=== PATIENT | female | born 1950 | race Two or more races ===

== ENCOUNTER 2018-10-19 01:57 | Inpatient (IN) | payer OTHER ==
[~2018-10-19] VITALS: Ht 167.6 cm; Wt 80.3 kg
[2018-10-19 02:00] VITALS: BP 138/74
--- NOTE | 2018-10-19 02:00 | NUR ---
RECEIVED PATIENT A DIRECT ADMIT FROM [facility] FOR DX CHEST PAIN. AO X 3, ABLE TO MAKE NEEDS KNOWN. NO ACUTE DISTRESS NOTED. DENIES ANY PAIN AT THIS TIME. IV SITE PATENT, INTACT; FLUSHED. SKIN INTACT. SAFETY REMINDERS GIVEN. MED RECON COMPLETED. ON LOW BED WITH BILATERAL UPPER SIDE RAILS UP. CALL [place]A WITHIN EASY REACH. WILL CONTINUE TO MONITOR. WAITING FOR ADMISSION ORDERS FROM DR. COREAS.
[2018-10-19 02:03] VITALS: BP 138/74
[2018-10-19] MEDS ORDERED: BENA20TA9 PO (02:29)
[2018-10-19] MEDS ORDERED: LEVO50TA8 PO (02:29)
[2018-10-19] MEDS ORDERED: TRIAMTERENE PO (02:29)
[2018-10-19] MEDS ORDERED: HYDROCODONE/APAP 5/325MG 1 EACH TABLET PO PRN (03:30)
[2018-10-19] MEDS ORDERED: ONDANSETRON HCL/PF 4 MG/2 ML VIAL IVP PRN (03:30)
[2018-10-19] MEDS ORDERED: MAGNESIUM HYDROXIDE 30 ML UDC PO PRN (03:30)
[2018-10-19] MEDS ORDERED: MAG HYDROX/AL HYDROX/SIMETH 30 ML UDC PO PRN (03:30)
[2018-10-19] MEDS ORDERED: Z GUARD REMEDY 2 OZ OINT TP PRN (03:30)
[2018-10-19] MEDS ORDERED: ACETAMINOPHEN 325 MG TABLET PO PRN (03:30)
[2018-10-19] MEDS ORDERED: TRIAMTERENE PO SCH (03:30)
[2018-10-19] MEDS ORDERED: ZOLPIDEM TARTRATE 5 MG TABLET PO PRN (03:30)
[2018-10-19 04:00] VITALS: BP 131/74
--- NOTE | 2018-10-19 06:00 | NUR ---
PATIENT ASLEEP, EASILY AROUSABLE. RESPIRATIONS EVEN. NO SIGNS OF PAIN NOTED. NEEDS ATTENDED. TELE READING SINUS RHYTHM. SAFETY PRECAUTIONS AND COMFORT MEASURES IN PLACE. WILL GIVE REPORT TO DAY SHIFT FOR CONTINUITY OF CARE.
[2018-10-19] MEDS ORDERED: LEVOTHYROXINE SODIUM 50 MCG TABLET PO SCH (07:30)
--- NOTE | 2018-10-19 08:00 | NUR ---
ACOUSTICAL INSTALLER OPENING NOTES Received Patient comfortable and resting in bed. A/O x 4. VS stable with no acute distress. Breathing even and unlabored on room air with no respiratory distress. Denies pain. Tele monitor in place and operational, reading SR with HR-96. 20g PIV on RAC clean, dry, intact, and flushing well. Safety precautions in place. Bed locked and set to lowest position with side rails x 2 up. All needs rendered at this time. Will continue to monitor.
[2018-10-19 08:22] LABS: BASOPHILS % (AUTO) 0.5 % (0.0-2.0); EOSINOPHILS % (AUTO) 2.2 % (0.0-6.0); HEMATOCRIT 40 % (33-45); HEMOGLOBIN 13.6 g/dL (11.5-14.8); LYMPHOCYTES # (AUTO) 2.6 /CMM (0.8-4.8); LYMPHOCYTES % (AUTO) 30.5 % (20.0-44.0); MEAN CORPUSCULAR HGB CONC 34 g/dl (31.0-36.0); MEAN CORPUSCULAR VOLUME 89 fL (82-100); MONOCYTES # (AUTO) 0.5 /CMM (0.1-1.30); MONOCYTES % (AUTO) 6.2 % (2.0-12.0); NEUTROPHILS # (AUTO) 5.2 /CMM (1.8-8.9); NEUTROPHILS % (AUTO) 60.6 % (43.0-81.0); PLATELET COUNT (AUTO) 79 /CMM (150-450); RED BLOOD CELL COUNT(AUTO) 4.48 MIL/uL (4.0-5.2); WHITE BLOOD COUNT (AUTO) 8.7 K/uL (4.3-11.0)
[2018-10-19 08:34] VITALS: BP 128/67
[2018-10-19 08:41] LABS: CALCIUM, SERUM 9.1 mg/dL (8.5-10.1); CREATININE 0.8 mg/dL (0.6-1.3); MAGNESIUM 1.7 mg/dL (1.8-2.4); POTASSIUM 3.8 mmol/L (3.5-5.1)
[2018-10-19] MEDS ORDERED: BENAZEPRIL HCL 20 MG TABLET PO SCH (09:00)
[2018-10-19 09:06] LABS: LYMPHOCYTES % (MANUAL) 29 % (16-48); MONOCYTES % (MANUAL) 6 % (0-11.0); NEUTROPHILS % (MANUAL) 65 (42-76)
[2018-10-19] MEDS ORDERED: ATORVASTATIN 10 MG TABLET PO SCH (09:30)
[2018-10-19] MEDS ORDERED: ASPIRIN 81 MG TAB.CHEW PO SCH (09:30)
[2018-10-19] MEDS: Magnesium 1GM/D5W 100ML PREMIX 100 ML IV SCH ×2 (09:52→11:06)
[2018-10-19 10:27] LABS: THYROID STIMULATING HORMONE 5.125 uIU/mL (0.358-3.74)
--- NOTE | 2018-10-19 12:01 | NUR ---
PLANNING ADVISOR NOTES Patient taken down to Radiology Dept. for Lexiscan at this time.
[2018-10-19] MEDS ORDERED: REGADENOSON 0.4 MG/5 ML DISP.SYRIN IVP ONE (12:30)
--- NOTE | 2018-10-19 13:05 | NUR ---
MS RN NOTES Patient returned from Radiology Dept. s/p [place] at this time. Patient in stable condition. Daughter at bedside. Lunch provided. Will continue to monitor.
[2018-10-19 16:10] VITALS: BP 116/75
[2018-10-19] MEDS ORDERED: ASPI-1169 PO (16:24)
[2018-10-19] MEDS ORDERED: ATOR10TA PO (16:24)
--- NOTE | 2018-10-19 17:25 | NUR ---
MS ROLLER COASTER DESIGNER NOTES Patient discharged for HOME at this time. Patient in stable condition. VS stable with no acute distress. Breathing even and unlabored on room air with no respiratory distress. Denies pain. Medication reconciliation and discharge orders reviewed and explained to Patient and family members. Patient verbalized understanding. Skin intact. All belongings with Patient. Escorted Patient to the lobby for safety. Patient picked up by Daughter, Gertrudis .
== END 2018-10-19 18:40 | disposition home or self-care (01) | DRG 198 ==
LOC: TELE 01:57 → MED 11:00
PROVIDERS: ADMIT Nurse Practitioner Acute Care; ATTEND Nurse Practitioner Acute Care
DX: I25.10 Atherosclerotic heart disease of native coronary artery without angina pectoris (principal); D69.6 Thrombocytopenia, unspecified; I11.0 Hypertensive heart disease with heart failure; I50.32 Chronic diastolic (congestive) heart failure; J44.9 Chronic obstructive pulmonary disease, unspecified; E83.42 Hypomagnesemia; I10 Essential (primary) hypertension; Z79.82 Long term (current) use of aspirin; E03.9 Hypothyroidism, unspecified; E66.9 Obesity, unspecified; Z85.89 Personal history of malignant neoplasm of other organs and systems
CPT/HCPCS: 36415; 80048-TC; 80061-TC; 83735-TC; 84100-TC; 84439-TC; 84443-TC; 84484-TC; 85025-TC; 87081-TC; 93307-TC; A9502; G0378; J2785; J3475; J7050

== ENCOUNTER 2020-03-15 14:28 | Emergency (ER) | payer OTHER ==
[~2020-03-15] VITALS: Ht 152.4 cm; Wt 79.8 kg
[~2020-03-15 14:28] MED LIST: ASPI-1169 PO; ATOR10TA PO; BENA20TA9 PO; LEVO50TA8 PO; TRIAMTERENE PO
--- NOTE | 2020-03-15 14:30 | NUR ---
PT BIB SELF C/O LUE PAIN 09/18.DENIES CHEST PAIN, SOB. VS CHECKED. AWAITING MD PHAN.
[2020-03-15] MEDS ORDERED: KETOROLAC TROMETHAMINE INJ 60 MG/2 ML VIAL IM ONE (15:00)
[2020-03-15] MEDS ORDERED: KETOROLAC TROMETHAMINE INJ 30 MG/ML VIAL ONE (15:05)
--- NOTE | 2020-03-15 15:08 | NUR ---
ROMINAO JULIO FOR XRAY
--- NOTE | 2020-03-15 16:20 | NUR ---
Patient discharged to home in stable condition. Written and verbal after care instructions given. Patient verbalizes understanding of instruction.
[2020-03-15 16:21] VITALS: BP 134/71
== END 2020-03-15 16:22 | disposition home or self-care (01) ==
LOC: ER 14:31
DX: M54.12 Radiculopathy, cervical region (principal); I10 Essential (primary) hypertension; E03.9 Hypothyroidism, unspecified; E78.5 Hyperlipidemia, unspecified; E78.00 Pure hypercholesterolemia, unspecified; J44.9 Chronic obstructive pulmonary disease, unspecified; Z98.890 Other specified postprocedural states; Z79.82 Long term (current) use of aspirin; Z79.899 Other long term (current) drug therapy
CPT/HCPCS: 70450; 96372; 99284; J1885

== ENCOUNTER 2020-10-04 14:17 | Emergency (ER) | payer OTHER ==
[~2020-10-04] VITALS: Ht 152.4 cm; Wt 81.6 kg
[2020-10-04] MEDS ORDERED: FAMOTIDINE/PF INJ 20 MG/2 ML VIAL IV ONE ×2 (14:58→15:00)
[2020-10-04 15:07] LABS: BASOPHILS % (AUTO) 0.5 % (0.0-2.0); EOSINOPHILS % (AUTO) 2.6 % (0.0-6.0); HEMATOCRIT 38 % (33-45); HEMOGLOBIN 12.7 g/dL (11.5-14.8); LYMPHOCYTES # (AUTO) 2.7 /CMM (0.8-4.8); LYMPHOCYTES % (AUTO) 33.2 % (20.0-44.0); MEAN CORPUSCULAR HGB CONC 33 g/dl (31.0-36.0); MEAN CORPUSCULAR VOLUME 90 fL (82-100); MONOCYTES # (AUTO) 0.6 /CMM (0.1-1.30); MONOCYTES % (AUTO) 6.9 % (2.0-12.0); NEUTROPHILS # (AUTO) 4.6 /CMM (1.8-8.9); NEUTROPHILS % (AUTO) 56.8 % (43.0-81.0); PLATELET COUNT (AUTO) 85 /CMM (150-450); RED BLOOD CELL COUNT(AUTO) 4.27 MIL/uL (4.0-5.2); WHITE BLOOD COUNT (AUTO) 8.2 K/uL (4.3-11.0)
--- NOTE | 2020-10-04 15:10 | NUR ---
BIBS WITH FAMILY TO ER BED 12. AAOX4. NOT IN RESP DISTRESS, BREATHING EVEN AND UNLABORED. AMBULATORY. CAME IN FOR EPIGASTRIC PIN STARTED FRIDAY WORST TODAY. PT RATES HER PAIN 5/ WITH A BURNING SENSATION THAT IS GOING UP HER CHEST. PT TOOK GAS-X WITHOUT RELIEF. MADE AWARE. ORDERS RECEIVED, NOTED AND CARRIED OUT. IV LINE ESTABLISHED ON THE R AC 20G, BLOOD DRAWN AND GIVEN TO PHLEB AT BEDSIDE. EKG DONE AT BEDSIDE.
[2020-10-04 15:17] LABS: CARBON DIOXIDE 29 mmol/L (21-32); CHLORIDE 94 mmol/L (98-107); CREATININE 0.8 mg/dL (0.6-1.3); GLUCOSE 104 mg/dL (74-106); POTASSIUM 3.5 mmol/L (3.5-5.1); SODIUM SERUM 129 mmol/L (136-145); UREA NITROGEN, BLOOD 11 mg/dL (7-18)
[2020-10-04 15:23] LABS: ALANINE AMINOTRANSFERASE 56 U/L (12-78); ALBUMIN 4.3 g/dL (3.4-5.0); ALKALINE PHOSPHATASE 157 U/L (46-116); ASPARTATE AMINOTRANSFERASE 26 U/L (15-37); BILIRUBIN,DIRECT 0.1 mg/dL (0.0-0.2); BILIRUBIN,TOTAL 0.6 mg/dL (0.2-1.0); LIPASE 194 U/L (73-393)
[2020-10-04] MEDS ORDERED: LIDOCAINE VISCOUS 2% UD 15 ML UDC MM ONE (15:30)
[2020-10-04] MEDS ORDERED: MAG HYDROX/AL HYDROX/SIMETH 30 ML UDC PO ONE (15:30)
[2020-10-04] MEDS ORDERED: MAG HYDROX/AL HYDROX/SIMETH 30 ML UDC ONE (15:35)
[2020-10-04] MEDS ORDERED: LIDOCAINE VISCOUS 2% UD 15 ML UDC ONE (15:35)
[2020-10-04 16:07] LABS: LYMPHOCYTES % (MANUAL) 32 % (16-48); MONOCYTES % (MANUAL) 9 % (0-11.0); NEUTROPHILS % (MANUAL) 57 (42-76)
[2020-10-04 16:08] LABS: EOSINOPHILS % (MANUAL) 2 % (0-4)
--- NOTE | 2020-10-04 16:15 | NUR ---
Patient discharged to home in stable condition. Written and verbal after care instructions given. Patient verbalizes understanding of instruction.IV removed. Catheter intact and site benign. Pressure and 4x4 applied to site. No bleeding noted. Pt ambulatory with a steady gait
[2020-10-04 16:31] VITALS: BP 118/65
== END 2020-10-04 16:16 | disposition home or self-care (01) ==
LOC: ER 14:17
DX: R10.13 Epigastric pain (principal); E87.1 Hypo-osmolality and hyponatremia; D69.6 Thrombocytopenia, unspecified; I10 Essential (primary) hypertension; E11.9 Type 2 diabetes mellitus without complications; Z98.890 Other specified postprocedural states; Z79.899 Other long term (current) drug therapy
CPT/HCPCS: 36415; 80048; 80076; 83690; 84484; 85007; 85025; 93005; 96374; 99284; J3490

== ENCOUNTER 2021-06-20 10:06 | Emergency (ER) | payer MEDICARE, OTHER ==
[~2021-06-20] VITALS: Ht 162.6 cm; Wt 81.6 kg
[2021-06-20 10:21] VITALS: BP 162/75
--- NOTE | 2021-06-20 10:21 | NUR ---
MAURA CLAVICULAR AREA PAIN SINCE FRIDAY WHILE "STRETCHING" CLOTHES
[2021-06-20] MEDS ORDERED: IBUPROFEN 600 MG TABLET ONE (11:27)
[2021-06-20] MEDS ORDERED: IBUPROFEN 600 MG TABLET PO ONE (11:30)
--- NOTE | 2021-06-20 12:50 | NUR ---
Patient discharged to home in stable condition. Written and verbal after care instructions given. Patient verbalizes understanding of instruction.
== END 2021-06-20 12:51 | disposition home or self-care (01) ==
LOC: ER 10:16
DX: M25.512 Pain in left shoulder (principal); I10 Essential (primary) hypertension; E11.9 Type 2 diabetes mellitus without complications; D69.59 Other secondary thrombocytopenia; Z86.718 Personal history of other venous thrombosis and embolism; Z85.831 Personal history of malignant neoplasm of soft tissue; Z79.82 Long term (current) use of aspirin; Z79.02 Long term (current) use of antithrombotics/antiplatelets; Z79.811 Long term (current) use of aromatase inhibitors
CPT/HCPCS: 73030-TC

== ENCOUNTER 2021-10-26 08:24 | Emergency (ER) | payer MEDICARE, OTHER ==
[~2021-10-26] VITALS: Ht 162.6 cm; Wt 81.6 kg
--- NOTE | 2021-10-26 08:29 | NUR ---
BIBS C/O DYSURIA, BURNING SENSATION WHEN URINATING x 4DAYS. TO ER BED 1, HOOKED TO MONITOR, CHANGED TO HOSP GOWN, WARM BLANKET PROVIDED, AWAITING MD PHAN
--- NOTE | 2021-10-26 08:50 | NUR ---
SEEN BY DR HAWKINS.
[2021-10-26 08:58] LABS: BASOPHILS % (AUTO) 0.2 % (0.0-2.0); EOSINOPHILS % (AUTO) 1.1 % (0.0-6.0); HEMATOCRIT 38 % (33-45); HEMOGLOBIN 12.9 g/dL (11.5-14.8); LYMPHOCYTES # (AUTO) 2.4 K/uL (0.8-4.8); LYMPHOCYTES % (AUTO) 21.1 % (20.0-44.0); MEAN CORPUSCULAR HGB CONC 34 g/dl (31.0-36.0); MEAN CORPUSCULAR VOLUME 87 fL (82-100); MONOCYTES # (AUTO) 0.6 K/uL (0.1-1.30); MONOCYTES % (AUTO) 5.1 % (2.0-12.0); NEUTROPHILS # (AUTO) 8.3 K/uL (1.8-8.9); NEUTROPHILS % (AUTO) 72.5 % (43.0-81.0); PLATELET COUNT (AUTO) 80 K/uL (150-450); WHITE BLOOD COUNT (AUTO) 11.4 K/uL (4.3-11.0)
[2021-10-26] MEDS ORDERED: SULF1TAB48 PO (09:09)
[2021-10-26] MEDS ORDERED: PHEN-894 PO (09:09)
[2021-10-26 09:11] LABS: BILIRUBIN,URINE NEGATIVE (NEGATIVE); COLOR,URINE YELLOW (YELLOW); LEUKOCYTE ESTERASE ,URINE MODERATE (NEGATIVE); NITRITE, URINE NEGATIVE (NEGATIVE); PH,URINE 6.5 (5.0-8.0); PROTEIN,URINE NEGATIVE (NEGATIVE); UGLUCOSE NEGATIVE (NEGATIVE); UROBILINOGEN,URINE 0.2 EU/dL (0.2)
[2021-10-26 09:16] LABS: CREATININE 0.8 mg/dL (0.6-1.3); POTASSIUM 3.3 mmol/L (3.5-5.1)
[2021-10-26 09:29] LABS: BACTERIA,URINE Few /HPF (None Seen); SQUAMOUS EPITHELIAL CELL,UR Few /HPF (None Seen)
[2021-10-26 09:46] VITALS: BP 124/68
== END 2021-10-26 09:47 | disposition home or self-care (01) ==
LOC: ER 08:30
DX: N39.0 Urinary tract infection, site not specified (principal); I10 Essential (primary) hypertension; E11.9 Type 2 diabetes mellitus without complications; E03.9 Hypothyroidism, unspecified; Z79.899 Other long term (current) drug therapy
CPT/HCPCS: 36415; 80048-TC; 81001; 85025-TC; 87086-TC; 87186-TC

== ENCOUNTER 2021-12-02 04:43 | Inpatient (IN) | payer MEDICARE, OTHER ==
[~2021-12-02] VITALS: Ht 152.4 cm; Wt 81.2 kg
[~2021-12-02 04:43] MED LIST changes: +PHEN-894 PO; +SULF1TAB48 PO
--- NOTE | 2021-12-02 04:50 | NUR ---
IV CANNULA G20 INSERTED ON LEFT FA.
--- NOTE | 2021-12-02 04:52 | NUR ---
EKG DONE. REVIEWED BY DR HAWKINS
--- NOTE | 2021-12-02 04:52 | NUR ---
PATIENT CAME WITH NIECE FROM HOME. CC OF WEAKNESS AND ALTERED LEVEL OF CONSCIOUSNESS. PER NIECE PATIENT HAS CHEST PAIN HOME AND WAS GIVEN NITRO 2 TABS. PATIENT IS AAOX1. CONSCIOUS, WITHDRAWS TO PAINFUL STIMULI. PLACED COMFORTABLY IN BED. VITALS CHECKED. PATIENT IS KNOWN DIABETIC WITH HEART CONDITION. ACCUCHECK DONE WITH GLUCOSE OF 95. LAST KNOWN WELL 0200H
--- NOTE | 2021-12-02 04:54 | NUR ---
CODE STROKE ACTIVATED
--- NOTE | 2021-12-02 04:57 | NUR ---
NEUROTELE MACHINE BROUGHT BY BUILDING CONSTRUCTION CONTRACTOR AT BEDSIDE.
--- NOTE | 2021-12-02 04:58 | NUR ---
DEBONE SUPERVISOR AT BEDSIDE. TO WHEEL PATIENT TO CT SCAN DEPT
--- NOTE | 2021-12-02 05:00 | NUR ---
PT HAVING DIFFICULTY SWALLOWING MORE THAN 5CC WATER. NIHSS SCORE OF 1. DR HAWKINS MADE AWARE.
[2021-12-02] MEDS ORDERED: IV NS 0.9% 250 ML IV ONE (05:04)
[2021-12-02] MEDS ORDERED: IOHEXOL-350 100 ML VIAL IV ONE ×2 (05:04→05:14)
[2021-12-02] MEDS ORDERED: CT SWABBABLE VALVE TRANS SET 1 EA INFUS.SET MC ONE (05:04)
--- NOTE | 2021-12-02 05:20 | NUR ---
TELENEURO WITH DR QURESHI STARTED.
--- NOTE | 2021-12-02 05:25 | NUR ---
COVID SWAB DONE AND SENT TO LAB
--- NOTE | 2021-12-02 05:25 | NUR ---
IV CANNULA G20 INSERTED ON RIGHT AC. BLOOD DRAWN AND SENT TO LAB
--- NOTE | 2021-12-02 06:02 | NUR ---
PT BROUGHT TO CT DEPT
[2021-12-02 06:03] LABS: BASOPHILS % (AUTO) 0.6 % (0.0-2.0); EOSINOPHILS % (AUTO) 1.9 % (0.0-6.0); HEMATOCRIT 38 % (33-45); HEMOGLOBIN 12.6 g/dL (11.5-14.8); LYMPHOCYTES # (AUTO) 3.1 K/uL (0.8-4.8); LYMPHOCYTES % (AUTO) 35.6 % (20.0-44.0); MEAN CORPUSCULAR HGB CONC 33 g/dl (31.0-36.0); MEAN CORPUSCULAR VOLUME 89 fL (82-100); MONOCYTES # (AUTO) 0.5 K/uL (0.1-1.30); MONOCYTES % (AUTO) 6.2 % (2.0-12.0); NEUTROPHILS # (AUTO) 4.9 K/uL (1.8-8.9); NEUTROPHILS % (AUTO) 55.7 % (43.0-81.0); PLATELET COUNT (AUTO) 81 K/uL (150-450); RED BLOOD CELL COUNT(AUTO) 4.27 MIL/uL (4.0-5.2); WHITE BLOOD COUNT (AUTO) 8.8 K/uL (4.3-11.0)
[2021-12-02 06:35] LABS: ALANINE AMINOTRANSFERASE 26 U/L (12-78); ALBUMIN 4.4 g/dL (3.4-5.0); ALKALINE PHOSPHATASE 125 U/L (46-116); ASPARTATE AMINOTRANSFERASE 21 U/L (15-37); BILIRUBIN,DIRECT 0.1 mg/dL (0.0-0.2); BILIRUBIN,TOTAL 0.4 mg/dL (0.2-1.0); CALCIUM, SERUM 9.1 mg/dL (8.5-10.1); CARBON DIOXIDE 31 mmol/L (21-32); CHLORIDE 97 mmol/L (98-107); GLUCOSE 118 mg/dL (74-106); POTASSIUM 4.3 mmol/L (3.5-5.1); SODIUM SERUM 134 mmol/L (136-145); TOTAL PROTEIN, SERUM 8.1 g/dL (6.4-8.2); UREA NITROGEN, BLOOD 16 mg/dL (7-18)
[2021-12-02 07:29] LABS: EOSINOPHILS % (MANUAL) 2 % (0-4); LYMPHOCYTES % (MANUAL) 37 % (16-48); MONOCYTES % (MANUAL) 7 % (0-11.0); NEUTROPHILS % (MANUAL) 54 (42-76)
[2021-12-02] MEDS ORDERED: ENOXAPARIN SODIUM 40 MG/0.4 ML DISP.SYRIN SQ SCH ×2 (07:30→09:36)
[2021-12-02] MEDS ORDERED: BLOOD SUGAR DIAGNOSTIC 1 EACH STRIP IN SCH (07:30)
[2021-12-02] MEDS ORDERED: PANTOPRAZOLE 40 MG TABLET.DR PO SCH (07:30)
[2021-12-02] MEDS ORDERED: ACETAMINOPHEN 325 MG TABLET PO PRN ×2 (07:30→10:00)
[2021-12-02] MEDS ORDERED: MAG HYDROX/AL HYDROX/SIMETH 30 ML UDC PO PRN (07:30)
[2021-12-02] MEDS ORDERED: ENOXAPARIN SODIUM 40 MG/0.4 ML DISP.SYRIN SQ ONE (07:40)
[2021-12-02] MEDS ORDERED: PANTOPRAZOLE 40 MG TABLET.DR PO ONE (07:41)
--- NOTE | 2021-12-02 08:50 | NUR ---
BED 312-2 Addendum: 12/02/21 at 0851 by REMA BED 310-1
[2021-12-02] MEDS ORDERED: ASPIRIN EC 325 MG TABLET.DR PO SCH (09:00)
--- NOTE | 2021-12-02 09:20 | NUR ---
REPORT GIVEN TO SHAHNAZ PHAM FOR LIVE
[2021-12-02] MEDS ORDERED: ATOR10TA PO (09:25)
[2021-12-02] MEDS ORDERED: OMEP10CA5 PO (09:25)
[2021-12-02] MEDS ORDERED: NITR0.4T48 PO (09:25)
[2021-12-02] MEDS ORDERED: METO50TA16 PO (09:25)
[2021-12-02] MEDS ORDERED: TRIA1TAB3 PO (09:25)
[2021-12-02] MEDS ORDERED: ACET-868 PO (09:25)
--- NOTE | 2021-12-02 09:37 | NUR ---
TRANSFERRED TO BED 310 IN STABLE CONDITION
--- NOTE | 2021-12-02 09:40 | NUR ---
RN NOTES RECEIVED PATIENT FROM ER AT 0937 AM. PATIENT IS ALERT AND ORIENTED TIMES 4. NO PAIN NOTED. NO SOB NOTED NO DISTRESS NOTED. ALL NEEDS ATTENDED. SON AT THE BED SIDE. SON TRANSLATED FOR HER MOM. NO PARALYSIS NOTED. WEAKNESS NOTED. PATIENT ABLE TO WALK WITH ASSISTANCE. NO DISTRESS NOTED. ALL THE BELONGINGS ACCOUNTED AND SIGNED FOR. IV SITE ON THE LFA BRITNEY 20 INTACT. ON TELE MONITOR READING SR. ALL SAFETY MEASURES IN PLACE. BED LOCKED IN THE LOWEST POSITION. CALL LIGHT AND TABLE IN EASY REACH. NEURO CHECKS DONE. NO DRIFT NOTED. WILL CONTINUE TO MONITOR CLOSELY.
[2021-12-02] MEDS ORDERED: CHOL100043 PO (09:45)
[2021-12-02] MEDS ORDERED: NITROGLYCERIN 0.4 MG/TAB BOTTLE SL PRN (10:00)
--- NOTE | 2021-12-02 10:00 | NUR ---
RN NOTES PATIENT REFUSED 0900 AM ASPIRIN. EDUCATE ABOUT THE BENEFITS STILL REFUSING. PATIENT STATED HER BLOOD COUNT IS LOW AND HER SPECIALIST SAID DO NOT TAKE THE MEDICATION.
[2021-12-02] MEDS: ATORVASTATIN 10 MG TABLET PO SCH (10:41)
[2021-12-02] MEDS: BENAZEPRIL HCL 20 MG TABLET PO SCH ×2 (10:41→16:34)
[2021-12-02] MEDS: LEVOTHYROXINE SODIUM 50 MCG TABLET PO SCH (10:41)
[2021-12-02] MEDS: METOPROLOL TARTRATE 50 MG TABLET PO SCH ×2 (10:42→16:34)
[2021-12-02] MEDS: BLOOD SUGAR DIAGNOSTIC 1 EACH STRIP IN SCH ×2 (12:06→17:31)
--- NOTE | 2021-12-02 18:47 | NUR ---
MOTOR EQUIPMENT COMMANDING OFFICER CLOSING NOTES PATIENT AWAKE IN BED. PATIENT IS ALERT AND ORIENTED TIMES 4. NO PAIN NOTED. NO SOB NOTED NO DISTRESS NOTED. ALL NEEDS ATTENDED. SON AT THE BED SIDE. SON TRANSLATED FOR HER MOM. NO PARALYSIS NOTED. GENERALIZED WEAKNESS NOTED. PATIENT ABLE TO WALK WITH ASSISTANCE. NO DISTRESS NOTED. IV SITE ON THE LFA BRITNEY 20 INTACT. ON TELE MONITOR READING SR. ALL DUE MEDS GIVEN ORDERED. NEURO CHECKS DONE.NO DRIFT NOTED. PATIENT ABLE TO AMBULATE WITH ASSISTANCE. GENERAL WEAKNESS NOTED.ALL SAFETY MEASURES IN PLACE. BED LOCKED IN THE LOWEST POSITION. CALL LIGHT AND TABLE IN EASY REACH. WILL ENDORSE FOR LIVE.
--- NOTE | 2021-12-02 19:40 | NUR ---
MS RN OPENING NOTES RECEIVED PATIENT AWAKE RESTING IN BED. A/O X 3. NO SOB NOTED, NO DISTRESS NOTED. ALL NEEDS ATTENDED. FAMILY AT BEDSIDE. GENERALIZED WEAKNESS NOTED. PATIENT ABLE TO WALK WITH ASSISTANCE. IV SITE ON THE LFA BRITNEY 20 INTACT. ALL SAFETY MEASURES IN PLACE. BED LOCKED IN THE LOWEST POSITION. CALL LIGHT AND TABLE IN EASY REACH. WILL CONTINUE TO MONITOR THROUGHOUT THE SHIFT. Addendum: 12/03/21 at 0039 by PABLO MARSH RN JEWELRY INSPECTOR OPENING NOTES RECEIVED PATIENT AWAKE RESTING IN BED. A/O X 3. NO SOB NOTED, NO DISTRESS NOTED. ALL NEEDS ATTENDED. FAMILY AT BEDSIDE. GENERALIZED WEAKNESS NOTED. PATIENT ABLE TO WALK WITH ASSISTANCE. IV SITE ON THE LFA BRITNEY 20 INTACT. ALL SAFETY MEASURES IN PLACE. BED LOCKED IN THE LOWEST POSITION. CALL LIGHT AND TABLE IN EASY REACH. WILL CONTINUE TO MONITOR THROUGHOUT THE SHIFT.
[2021-12-02 20:43] VITALS: BP 135/73
[2021-12-02] MEDS ORDERED: SIMVASTATIN 10 MG TABLET PO SCH (22:00)
[2021-12-02 23:37] VITALS: BP 120/67
[2021-12-03 00:33] VITALS: BP 120/67
[2021-12-03] MEDS: BLOOD SUGAR DIAGNOSTIC 1 EACH STRIP IN SCH ×3 (00:35→12:00)
--- NOTE | 2021-12-03 00:35 | NUR ---
RN NOTE BS CHECKED AT 104 MG/DL. NO COVERAGE GIVEN, ALL DUE MEDS GIVEN. WILL CONT TO MONITOR.
[2021-12-03 04:39] VITALS: BP 132/74
[2021-12-03 04:45] VITALS: BP 132/74
--- NOTE | 2021-12-03 05:54 | NUR ---
RN NOTE BS CHECKED AT 101 MG/DL. NO COVERAGE GIVEN.
[2021-12-03 06:41] LABS: BASOPHILS % (AUTO) 0.4 % (0.0-2.0); EOSINOPHILS % (AUTO) 2.7 % (0.0-6.0); HEMATOCRIT 37 % (33-45); HEMOGLOBIN 12.6 g/dL (11.5-14.8); LYMPHOCYTES # (AUTO) 2.4 K/uL (0.8-4.8); LYMPHOCYTES % (AUTO) 32.7 % (20.0-44.0); MEAN CORPUSCULAR HGB CONC 34 g/dl (31.0-36.0); MEAN CORPUSCULAR VOLUME 88 fL (82-100); MONOCYTES # (AUTO) 0.5 K/uL (0.1-1.30); NEUTROPHILS # (AUTO) 4.1 K/uL (1.8-8.9); NEUTROPHILS % (AUTO) 57.2 % (43.0-81.0); PLATELET COUNT (AUTO) 73 K/uL (150-450); RED BLOOD CELL COUNT(AUTO) 4.26 MIL/uL (4.0-5.2); WHITE BLOOD COUNT (AUTO) 7.2 K/uL (4.3-11.0)
--- NOTE | 2021-12-03 06:51 | NUR ---
CELL ROOM OPERATOR CLOSING NOTES PATIENT AWAKE IN BED. A/O X 4. ON RA, TOLERATING WELL SATING 96%. NO SOB AND ANY S/SX OF RESPIRATORY DISTRESS NOTED AT THIS TIME. ALL NEEDS ATTENDED. NO PARALYSIS NOTED HOWEVER NOTED WITH GENERALIZED WEAKNESS, PATIENT ABLE TO AMBULATE WITH ASSISTANCE. IV ACCESS ON THE LFA BRITNEY 20 AND RAC #2OG SL INTACT AND PATENT. ON TELE MONITOR READING SR AT 60. ALL DUE MEDS GIVEN ORDERED. NEURO CHECKS DONE. NO DRIFT NOTED. ALL SAFETY MEASURES IN PLACE. BED LOCKED IN THE LOWEST POSITION. CALL LIGHT AND TABLE IN EASY REACH. WILL ENDORSE TO AM SHIFT NURSE.
[2021-12-03 07:14] LABS: THYROID STIMULATING HORMONE 3.391 uIU/mL (0.358-3.74)
[2021-12-03] MEDS ORDERED: PANTOPRAZOLE 40 MG TABLET.DR PO SCH (07:30)
--- NOTE | 2021-12-03 07:43 | NUR ---
RN OPENING NOTE PATIENT AWAKE IN BED RESTING. A/O X4. NO S/S OF PAIN NOTED AT THIS TIME. ON ROOM AIR, NO DISTRESS OR SHORTNESS OF BREATH NOTED. IV ACCESS LFA #20G, RAC #22G INTACT, PATENT AND FLUSHING WELL. PATIENT ON EXTERNAL PANEL FLOW MACHINE OPERATOR WITH CURRENT READING OF SR AND HR OF 61, NO CARDIAC DISTRESS NOTED. FALL AND SAFETY MEASURES IN PLACE, BED ALARM ON, BED IN LOW AND LOCK POSITION, CALL LIGHT AND TABLE WITHIN EASY REACH, SIDE RAILS UP X2. WILL CONTINUE TO MONITOR.
[2021-12-03] MEDS ORDERED: CT SWABBABLE VALVE TRANS SET 1 EA INFUS.SET MC ONE (08:01)
[2021-12-03] MEDS ORDERED: METOPROLOL TARTRATE INJ 5 MG/5 ML AMPUL ONE ×2 (08:01→08:22)
[2021-12-03] MEDS ORDERED: NITROGLYCERIN 0.4 MG/TAB BOTTLE ONE (08:01)
[2021-12-03] MEDS ORDERED: IOHEXOL-350 100 ML VIAL IV ONE (08:01)
[2021-12-03] MEDS ORDERED: IV NS 0.9% 250 ML IV ONE (08:02)
[2021-12-03] MEDS: METOPROLOL TARTRATE INJ 5 MG/5 ML AMPUL IVP PRN ×3 (08:09→08:19)
[2021-12-03 08:27] LABS: ALBUMIN 3.9 g/dL (3.4-5.0); BILIRUBIN,TOTAL 0.7 mg/dL (0.2-1.0); CALCIUM, SERUM 8.9 mg/dL (8.5-10.1); CREATININE 0.8 mg/dL (0.6-1.3); MAGNESIUM 2.2 mg/dL (1.8-2.4); POTASSIUM 3.7 mmol/L (3.5-5.1); TOTAL PROTEIN, SERUM 7.4 g/dL (6.4-8.2)
[2021-12-03] MEDS ORDERED: NITROGLYCERIN 0.4 MG/TAB BOTTLE SL PRN (08:30)
[2021-12-03] MEDS ORDERED: ENOXAPARIN SODIUM 40 MG/0.4 ML DISP.SYRIN SQ SCH (09:00)
[2021-12-03] MEDS: LEVOTHYROXINE SODIUM 50 MCG TABLET PO SCH (09:24)
[2021-12-03] MEDS: METOPROLOL TARTRATE 50 MG TABLET PO SCH (09:24)
[2021-12-03] MEDS: ATORVASTATIN 10 MG TABLET PO SCH (09:24)
[2021-12-03 09:25] VITALS: BP 135/55
[2021-12-03] MEDS: BENAZEPRIL HCL 20 MG TABLET PO SCH (09:25)
[2021-12-03] MEDS ORDERED: ASPIRIN EC 81 MG TABLET.DR PO SCH (10:00)
[2021-12-03] MEDS ORDERED: SIMV-49 PO (10:17)
[2021-12-03] MEDS ORDERED: Aspirin Ec PO (10:17)
--- NOTE | 2021-12-03 11:55 | NUR ---
RN NOTE PATIENT REFUSED ACCU-CHECK BEFORE DISCHARGE, PREVIOUS GLUCOSE LEVEL WAS 101.
--- NOTE | 2021-12-03 12:00 | NUR ---
CERAMICS TEST ENGINEER NOTE PATIENT DISCHARGE IN STABLE MEDICAL CONDITION, A/O X4. V/S TAKEN, STABLE AND RECORDED. NO IV ACCESS. SKIN ASSESSMENT DONE, SKIN INTACT. NAME ARM BAND REMOVED. ALL BELONGINGS CHECKED AND SIGNED. HEALTH TEACHING AND DISCHARGE INSTRUCTIONS GIVEN AND VERBALIZED UNDERSTANDING. PATIENT LEFT UNIT VIA WHEELCHAIR WITH NO SIGNS OF DISTRESS, ACCOMPANIED BY TERRITORY MANAGER TO THE LOBBY. PATIENT WENT HOME WITH DAUGHTER. CHARGE NURSE AWARE OF DISCHARGED.
--- NOTE | 2021-12-03 15:06 | NUR ---
SS Consult requested stroke. Per RN note, pt. has departed.
== END 2021-12-03 12:00 | disposition home or self-care (01) | DRG 69 ==
LOC: ER 04:51 → TELE 08:54 → MED 12-03 09:20
PROVIDERS: ADMIT Registered Nurse; ATTEND Registered Nurse
DX: G45.9 Transient cerebral ischemic attack, unspecified (principal); R47.01 Aphasia; D69.6 Thrombocytopenia, unspecified; I50.9 Heart failure, unspecified; I11.0 Hypertensive heart disease with heart failure; E11.9 Type 2 diabetes mellitus without complications; E78.5 Hyperlipidemia, unspecified; Z20.822 Contact with and (suspected) exposure to COVID-19; K21.9 Gastro-esophageal reflux disease without esophagitis; Z98.890 Other specified postprocedural states; Z86.718 Personal history of other venous thrombosis and embolism; E83.42 Hypomagnesemia; Z79.82 Long term (current) use of aspirin; Z79.899 Other long term (current) drug therapy; E03.9 Hypothyroidism, unspecified; E66.01 Morbid (severe) obesity due to excess calories; Z68.35 Body mass index [BMI] 35.0-35.9, adult; Z86.73 Personal history of transient ischemic attack (TIA), and cerebral infarction without residual deficits; F41.9 Anxiety disorder, unspecified; Z86.79 Personal history of other diseases of the circulatory system
CPT/HCPCS: 36415; 70450-TC; 70496-TC; 70498-TC; 70551-TC; 71045-TC; 75574; 80048-TC; 80053-TC; 80076-TC; 82962-TC; 83605-TC; 83735-TC; 84100-TC; 84443-TC; 84484-TC; 85025-TC; 85730-TC; 87081-TC; 92526; 92611-TC; 93307-TC; 93880-TC; 97110-TC; 97112-TC; 97116-TC; 97530-TC; C9803; G0378; J1650; J3490; J7050; Q9967

== ENCOUNTER 2022-01-09 12:46 | Emergency (ER) | payer MEDICARE, OTHER ==
[~2022-01-09] VITALS: Ht 157.5 cm; Wt 68.5 kg
[~2022-01-09 12:46] MED LIST changes: +ACET-868 PO; -ASPI-1169 PO; -ATOR10TA PO; +Aspirin Ec PO; +CHOL100043 PO; +METO50TA16 PO; +NITR0.4T48 PO; +OMEP10CA5 PO; -PHEN-894 PO; +SIMV-49 PO; -SULF1TAB48 PO; +TRIA1TAB3 PO; -TRIAMTERENE PO
--- NOTE | 2022-01-09 12:50 | NUR ---
BIBS FOR COUGH X1 WEEK. THE PATIENT WAS PRESCRIBED AZITHROMYCIN (LAST DOSE TAKEN ON FRIDAY), ALBUTEROL AND GUAFENASIN BY PMD. AMBULATORY, PLACED ON BED, AAOX4, BREATHING EVEN AND UNLABORED SATURATING AT 98%RA
--- NOTE | 2022-01-09 13:20 | NUR ---
COVID ANTIGEN SWAB DONE AND SENT TO THE LAB
--- NOTE | 2022-01-09 13:20 | NUR ---
IV LINE IS ESTABLISHED, BLOOD SPECIMEN COLLECTED AND SENT TO THE LAB, THE LINE IS SALINE LOCKED.
--- NOTE | 2022-01-09 13:22 | NUR ---
RAPID INFLUENZA SWAB DONE AND SENT TO THE LAB
[2022-01-09 13:28] LABS: BASOPHILS % (AUTO) 0.4 % (0.0-2.0); HEMATOCRIT 37 % (33-45); HEMOGLOBIN 12.2 g/dL (11.5-14.8); LYMPHOCYTES # (AUTO) 2.3 K/uL (0.8-4.8); LYMPHOCYTES % (AUTO) 30.8 % (20.0-44.0); MEAN CORPUSCULAR HGB CONC 33 g/dl (31.0-36.0); MEAN CORPUSCULAR VOLUME 88 fL (82-100); MONOCYTES # (AUTO) 0.5 K/uL (0.1-1.30); MONOCYTES % (AUTO) 7.1 % (2.0-12.0); NEUTROPHILS # (AUTO) 4.4 K/uL (1.8-8.9); NEUTROPHILS % (AUTO) 58.7 % (43.0-81.0); PLATELET COUNT (AUTO) 88 K/uL (150-450); WHITE BLOOD COUNT (AUTO) 7.4 K/uL (4.3-11.0)
[2022-01-09 13:35] LABS: CALCIUM, SERUM 8.9 mg/dL (8.5-10.1); CARBON DIOXIDE 30 mmol/L (21-32); CHLORIDE 102 mmol/L (98-107); CREATININE 0.9 mg/dL (0.6-1.3); GLUCOSE 132 mg/dL (74-106); POTASSIUM 3.6 mmol/L (3.5-5.1); SODIUM SERUM 138 mmol/L (136-145); UREA NITROGEN, BLOOD 10 mg/dL (7-18)
[2022-01-09 13:48] LABS: ALANINE AMINOTRANSFERASE 39 U/L (12-78); ALKALINE PHOSPHATASE 135 U/L (46-116); ASPARTATE AMINOTRANSFERASE 23 U/L (15-37); BILIRUBIN,DIRECT 0.1 mg/dL (0.0-0.2); BILIRUBIN,TOTAL 0.5 mg/dL (0.2-1.0); TOTAL PROTEIN, SERUM 7.5 g/dL (6.4-8.2)
[2022-01-09] MEDS ORDERED: ALBUTEROL FS 2.5 MG/3 ML VIAL.NEB CONTNEB ONE (14:00)
[2022-01-09] MEDS ORDERED: IPRATROPIUM NEB FS 0.5 MG/2.5 ML AMPUL.NEB NEB ONE (14:00)
[2022-01-09] MEDS ORDERED: methylPREDNISolone SOD SUCC 125 MG/2ML VIAL IV ONE (14:00)
--- NOTE | 2022-01-09 14:15 | NUR ---
RT CALLED FOR BREATHING TX
[2022-01-09 14:17] LABS: BASOPHILS % (MANUAL) 0 % (0.0-2.0); EOSINOPHILS % (MANUAL) 2 % (0-4); LYMPHOCYTES % (MANUAL) 22 % (16-48); MONOCYTES % (MANUAL) 15 % (0-11.0); NEUTROPHILS % (MANUAL) 61 (42-76)
[2022-01-09] MEDS ORDERED: PRED20TA PO (15:02)
--- NOTE | 2022-01-09 15:25 | NUR ---
IV removed. Catheter intact and site benign. Pressure and 4x4 applied to site. No bleeding noted.Patient discharged to home in stable condition. Written and verbal after care instructions given. Patient verbalizes understanding of instruction.
[2022-01-09 15:26] VITALS: BP 120/60
== END 2022-01-09 15:25 | disposition home or self-care (01) ==
LOC: ER 12:49
DX: J20.9 Acute bronchitis, unspecified (principal); Z20.822 Contact with and (suspected) exposure to COVID-19; E78.5 Hyperlipidemia, unspecified; E11.9 Type 2 diabetes mellitus without complications; K21.9 Gastro-esophageal reflux disease without esophagitis; Z86.718 Personal history of other venous thrombosis and embolism; D69.6 Thrombocytopenia, unspecified; E07.9 Disorder of thyroid, unspecified; Z79.890 Hormone replacement therapy; Z79.899 Other long term (current) drug therapy
CPT/HCPCS: 36415; 71045-TC; 80048-TC; 80076-TC; 83880; 84484-TC; 85025-TC; 86403-TC; 94799-TC; C9803

== ENCOUNTER 2022-01-11 09:31 | Emergency (ER) | payer MEDICARE, OTHER ==
[~2022-01-11] VITALS: Ht 165.1 cm; Wt 68.0 kg
[~2022-01-11 09:31] MED LIST changes: +PRED20TA PO
--- NOTE | 2022-01-11 09:45 | NUR ---
BIBS C/O LEFT ARM PAIN X2DAYS P/S 12/19, DENIES TRAUMA, HX OF ARTHRITIS. PT STATED THAT THE PAIN FEELS LIKE "ELECTRICITY" LAST FOR 5 MINUTES, GOES AWAY, AND THEN COMES BACK. DENIES ANY CHEST PAIN. VITALS ARE WITHIN NORMAL LIMITS. WARM BLNKAET PROVIDED FOR COMFORT. AWAITING MD PHAN.
[2022-01-11] MEDS ORDERED: KETOROLAC TROMETHAMINE 15 MG/ML VIAL ONE (10:06)
--- NOTE | 2022-01-11 10:10 | NUR ---
IV ESTABLISHED R AC 18G. LABS DRAWN AND COLLECTED AT BEDSIDE.
[2022-01-11] MEDS ORDERED: KETOROLAC TROMETHAMINE INJ 30 MG/ML VIAL IV ONE (10:30)
[2022-01-11 10:36] LABS: BASOPHILS % (AUTO) 0.3 % (0.0-2.0); EOSINOPHILS % (AUTO) 0.4 % (0.0-6.0); HEMATOCRIT 36 % (33-45); HEMOGLOBIN 11.8 g/dL (11.5-14.8); LYMPHOCYTES # (AUTO) 3.9 K/uL (0.8-4.8); LYMPHOCYTES % (AUTO) 29.8 % (20.0-44.0); MEAN CORPUSCULAR HGB CONC 33 g/dl (31.0-36.0); MEAN CORPUSCULAR VOLUME 89 fL (82-100); MONOCYTES % (AUTO) 7.4 % (2.0-12.0); NEUTROPHILS # (AUTO) 8.1 K/uL (1.8-8.9); NEUTROPHILS % (AUTO) 62.1 % (43.0-81.0); PLATELET COUNT (AUTO) 81 K/uL (150-450); RED BLOOD CELL COUNT(AUTO) 4.07 MIL/uL (4.0-5.2)
[2022-01-11 10:54] LABS: CALCIUM, SERUM 8.9 mg/dL (8.5-10.1); CREATININE 0.9 mg/dL (0.6-1.3); POTASSIUM 3.5 mmol/L (3.5-5.1)
[2022-01-11] MEDS ORDERED: IOHEXOL-350 100 ML VIAL IV ONE (11:54)
[2022-01-11] MEDS ORDERED: IV NS 0.9% 250 ML IV ONE (11:54)
[2022-01-11] MEDS ORDERED: IBUP-1955 PO (13:31)
[2022-01-11 13:39] LABS: BASOPHILS % (MANUAL) 0 % (0.0-2.0); EOSINOPHILS % (MANUAL) 0 % (0-4); LYMPHOCYTES % (MANUAL) 28 % (16-48); MONOCYTES % (MANUAL) 9 % (0-11.0); NEUTROPHILS % (MANUAL) 63 (42-76)
[2022-01-11 14:46] VITALS: BP 131/75
== END 2022-01-11 14:47 | disposition home or self-care (01) ==
LOC: ER 09:33
DX: M79.602 Pain in left arm (principal); R60.9 Edema, unspecified; I11.0 Hypertensive heart disease with heart failure; I50.9 Heart failure, unspecified; E78.5 Hyperlipidemia, unspecified; E11.9 Type 2 diabetes mellitus without complications; K21.9 Gastro-esophageal reflux disease without esophagitis; D69.6 Thrombocytopenia, unspecified; Z86.718 Personal history of other venous thrombosis and embolism; Z88.0 Allergy status to penicillin; Z88.5 Allergy status to narcotic agent
CPT/HCPCS: 99285; 96374; 71275; 93971; 71045; 93005 ×2; 85025; 80048; 85378; 36415; 84484; 83880; 85007; J7050; Q9967; J1885

== ENCOUNTER 2022-09-18 10:30 | Emergency (ER) | payer MEDICARE, OTHER ==
[~2022-09-18] VITALS: Ht 162.6 cm; Wt 77.1 kg
[~2022-09-18 10:30] MED LIST changes: +IBUP-1955 PO
--- NOTE | 2022-09-18 10:50 | NUR ---
pt came in due to abdominal pain with diarrhea and vomiting WITH FEVER for 3days. she is hypertensive and high cholesterol.ambulatory, AOX4, NOT IN CR DISTRESS. PUT ON GOWN AND MONITOR PLUS PULSE.
[2022-09-18] MEDS ORDERED: IV NS 0.9% 1,000 ML BAG IV ONE (11:00)
--- NOTE | 2022-09-18 11:00 | NUR ---
MECHANICAL TECH AT BEDSIDE.
[2022-09-18 11:07] LABS: BASOPHILS % (AUTO) 0.2 % (0.0-2.0); EOSINOPHILS % (AUTO) 1.9 % (0.0-6.0); HEMATOCRIT 38 % (33-45); HEMOGLOBIN 12.6 g/dL (11.5-14.8); LYMPHOCYTES # (AUTO) 0.9 K/uL (0.8-4.8); LYMPHOCYTES % (AUTO) 18.7 % (20.0-44.0); MEAN CORPUSCULAR HGB CONC 34 g/dl (31.0-36.0); MEAN CORPUSCULAR VOLUME 87 fL (82-100); MONOCYTES # (AUTO) 0.5 K/uL (0.1-1.30); MONOCYTES % (AUTO) 10.8 % (2.0-12.0); NEUTROPHILS # (AUTO) 3.3 K/uL (1.8-8.9); NEUTROPHILS % (AUTO) 68.4 % (43.0-81.0); PLATELET COUNT (AUTO) 65 K/uL (150-450); RED BLOOD CELL COUNT(AUTO) 4.33 MIL/uL (4.0-5.2); WHITE BLOOD COUNT (AUTO) 4.8 K/uL (4.3-11.0)
[2022-09-18] MEDS ORDERED: ONDANSETRON HCL/PF 4 MG/2 ML VIAL ONE (11:14)
[2022-09-18 11:21] LABS: CREATININE 0.9 mg/dL (0.6-1.3); POTASSIUM 3.5 mmol/L (3.5-5.1)
[2022-09-18 11:27] LABS: BILIRUBIN,DIRECT 0.1 mg/dL (0.0-0.2); BILIRUBIN,TOTAL 0.5 mg/dL (0.2-1.0); TOTAL PROTEIN, SERUM 7.6 g/dL (6.4-8.2)
[2022-09-18] MEDS ORDERED: ONDANSETRON HCL/PF - ER 4 MG/2 ML VIAL IV ONE (11:30)
--- NOTE | 2022-09-18 11:51 | NUR ---
PT AWAY AT CT
--- NOTE | 2022-09-18 12:00 | NUR ---
PT RETUREND FROM CT IN STABLE CONDITION
--- NOTE | 2022-09-18 12:00 | NUR ---
iv fluid started at 1055 and end time is 1155.
--- NOTE | 2022-09-18 12:13 | NUR ---
URINE COLLECTED AND SENT TO LAB
[2022-09-18 12:31] LABS: BILIRUBIN,URINE NEGATIVE (NEGATIVE); COLOR,URINE YELLOW (YELLOW); LEUKOCYTE ESTERASE ,URINE 1+ (NEGATIVE); NITRITE, URINE NEGATIVE (NEGATIVE); PH,URINE 6.5 (5.0-8.0); PROTEIN,URINE NEGATIVE (NEGATIVE); UGLUCOSE NEGATIVE (NEGATIVE); UROBILINOGEN,URINE 0.2 EU/dL (0.2)
[2022-09-18 12:52] LABS: BACTERIA,URINE Few /HPF (None Seen); RBC,URINE 0-2 /HPF (0-2); SQUAMOUS EPITHELIAL CELL,UR Rare /HPF (None Seen); WBC,URINE 0-2 /HPF (0-3)
[2022-09-18] MEDS ORDERED: CIPR500T5 PO (13:31)
[2022-09-18] MEDS ORDERED: ONDA4TAB5 PO (13:31)
[2022-09-18 13:51] VITALS: BP 139/54
[2022-09-18 17:11] LABS: LYMPHOCYTES % (MANUAL) 16 % (16-48); NEUTROPHILS % (MANUAL) 70 (42-76)
[2022-09-18 17:12] LABS: EOSINOPHILS % (MANUAL) 2 % (0-4); MONOCYTES % (MANUAL) 12 % (0-11.0)
== END 2022-09-18 13:52 | disposition home or self-care (01) ==
LOC: ER 10:55
DX: K52.9 Noninfective gastroenteritis and colitis, unspecified (principal); I11.0 Hypertensive heart disease with heart failure; I50.9 Heart failure, unspecified; E78.5 Hyperlipidemia, unspecified; K21.9 Gastro-esophageal reflux disease without esophagitis; E11.9 Type 2 diabetes mellitus without complications; Z98.890 Other specified postprocedural states; Z79.899 Other long term (current) drug therapy; Z88.0 Allergy status to penicillin; Z88.5 Allergy status to narcotic agent
CPT/HCPCS: 99285; 74176; 96374; 96361; 85025; 80048; 87086; 83690; 80076; 81001; 36415; 85007; J2405 ×2; J7030

== ENCOUNTER 2022-12-13 11:44 | Emergency (ER) | payer MEDICARE, OTHER ==
[~2022-12-13] VITALS: Ht 152.4 cm; Wt 77.1 kg
[~2022-12-13 11:44] MED LIST changes: +CIPR500T5 PO; +ONDA4TAB5 PO
[2022-12-13] MEDS ORDERED: IV NS 0.9% 1,000 ML BAG IV ONE (12:30)
[2022-12-13 12:49] LABS: BASOPHILS % (AUTO) 0.5 % (0.0-2.0); EOSINOPHILS # (AUTO) 0.2 K/uL (0.0-0.7); HEMATOCRIT 37 % (33-45); HEMOGLOBIN 12.3 g/dL (11.5-14.8); LYMPHOCYTES % (AUTO) 38.7 % (20.0-44.0); MEAN CORPUSCULAR HEMOGLOBIN 29 PG (26.0-33.0); MEAN CORPUSCULAR HGB CONC 33 g/dl (31.0-36.0); MEAN CORPUSCULAR VOLUME 88 fL (82-100); MONOCYTES # (AUTO) 0.4 K/uL (0.1-1.30); MONOCYTES % (AUTO) 7.4 % (2.0-12.0); NEUTROPHILS # (AUTO) 2.5 K/uL (1.8-8.9); NEUTROPHILS % (AUTO) 49.4 % (43.0-81.0); PLATELET COUNT (AUTO) 78 K/uL (150-450); RED BLOOD CELL COUNT(AUTO) 4.22 MIL/uL (4.0-5.2); RED CELL DISTRIBUTION WIDTH 14.6 % (11.5-15.0); WHITE BLOOD COUNT (AUTO) 5.1 K/uL (4.3-11.0)
[2022-12-13 13:03] LABS: LACTIC ACID 0.9 mmol/L (0.4-2.0)
[2022-12-13 13:08] LABS: CALCIUM, SERUM 8.8 mg/dL (8.5-10.1); CARBON DIOXIDE 26 mmol/L (21-32); CHLORIDE 106 mmol/L (98-107); CREATININE 0.7 mg/dL (0.6-1.3); GLUCOSE 99 mg/dL (74-106); POTASSIUM 3.9 mmol/L (3.5-5.1); SODIUM SERUM 138 mmol/L (136-145); UREA NITROGEN, BLOOD 10 mg/dL (7-18)
[2022-12-13 13:12] LABS: ALANINE AMINOTRANSFERASE 45 U/L (12-78); ALKALINE PHOSPHATASE 170 U/L (46-116); ASPARTATE AMINOTRANSFERASE 30 U/L (15-37); BILIRUBIN,DIRECT 0.1 mg/dL (0.0-0.2); BILIRUBIN,TOTAL 0.4 mg/dL (0.2-1.0); LIPASE 82 U/L (73-393); TOTAL PROTEIN, SERUM 7.6 g/dL (6.4-8.2)
[2022-12-13] MEDS ORDERED: LOPE2CAP40 PO (13:16)
[2022-12-13 13:31] LABS: ANISOCYTOSIS 1+; BASOPHILS % (MANUAL) 0 % (0.0-2.0); EOSINOPHILS % (MANUAL) 6 % (0-4); LYMPHOCYTES % (MANUAL) 31 % (16-48); MONOCYTES % (MANUAL) 10 % (0-11.0); NEUTROPHILS % (MANUAL) 53 (42-76); PLATELET ESTIMATE DECREASED
[2022-12-13 14:02] VITALS: BP 115/68; TEMP 98.2; O2SAT 100
== END 2022-12-13 14:03 | disposition home or self-care (01) ==
LOC: ER 11:46
DX: K52.9 Noninfective gastroenteritis and colitis, unspecified (principal); E78.5 Hyperlipidemia, unspecified; I11.0 Hypertensive heart disease with heart failure; I50.9 Heart failure, unspecified; J40 Bronchitis, not specified as acute or chronic; K21.9 Gastro-esophageal reflux disease without esophagitis; E11.9 Type 2 diabetes mellitus without complications; D69.6 Thrombocytopenia, unspecified; Z79.899 Other long term (current) drug therapy; Z88.0 Allergy status to penicillin; Z88.5 Allergy status to narcotic agent
CPT/HCPCS: 99284; 74176; 96360; 71045; 85025; 80048; 83605; 83690; 80076; 36415; 84484; 83880; 85007; J7030

== ENCOUNTER 2023-05-05 10:32 | Emergency (ER) | payer MEDICARE, OTHER ==
[~2023-05-05] VITALS: Ht 152.4 cm; Wt 75.3 kg
[~2023-05-05 10:32] MED LIST changes: +LOPE2CAP40 PO
[2023-05-05] MEDS ORDERED: GUAIFENESIN/D-METHORPHAN HB 5 ML UDC ONE (11:25)
[2023-05-05] MEDS ORDERED: ACETAMINOPHEN 325 MG TABLET ONE (11:25)
[2023-05-05] MEDS ORDERED: ONDANSETRON 4 MG TAB.RAPDIS ONE (11:26)
[2023-05-05] MEDS ORDERED: GUAIFENESIN/D-METHORPHAN HB 5 ML UDC PO ONE (11:30)
[2023-05-05] MEDS ORDERED: ONDANSETRON 4 MG TAB.RAPDIS SL ONE (11:30)
[2023-05-05] MEDS ORDERED: ACETAMINOPHEN 325 MG TABLET PO ONE (11:30)
[2023-05-05] MEDS ORDERED: BENZ-13 PO (13:15)
[2023-05-05] MEDS ORDERED: GUAI1TBM19 PO (13:15)
[2023-05-05 14:09] VITALS: BP 132/63; TEMP 98.6; O2SAT 98
== END 2023-05-05 14:11 | disposition home or self-care (01) ==
LOC: ER 10:40
DX: J06.9 Acute upper respiratory infection, unspecified (principal); R05.9 Cough, unspecified; I11.0 Hypertensive heart disease with heart failure; I50.9 Heart failure, unspecified; E78.5 Hyperlipidemia, unspecified; E11.9 Type 2 diabetes mellitus without complications; K21.9 Gastro-esophageal reflux disease without esophagitis; Z88.0 Allergy status to penicillin; Z88.5 Allergy status to narcotic agent; Z20.822 Contact with and (suspected) exposure to COVID-19
CPT/HCPCS: 99284; 71045; 87426; Q0162; C9803

== ENCOUNTER 2023-08-21 11:45 | Emergency (ER) | payer MEDICARE, OTHER ==
[~2023-08-21] VITALS: Ht 157.5 cm; Wt 80.3 kg
[~2023-08-21 11:45] MED LIST changes: +BENZ-13 PO; +GUAI1TBM19 PO
[2023-08-21] MEDS ORDERED: IBUPROFEN 600 MG TABLET ONE (12:30)
[2023-08-21] MEDS ORDERED: ACETAMINOPHEN ES 500 MG TABLET ONE (12:30)
[2023-08-21] MEDS: ACETAMINOPHEN ES 500 MG TABLET PO ONE (12:34)
[2023-08-21] MEDS: IBUPROFEN 600 MG TABLET PO ONE (12:34)
[2023-08-21] MEDS ORDERED: NAPR-1009 PO (14:25)
[2023-08-21 14:29] VITALS: BP 149/89; TEMP 98.4; O2SAT 99
== END 2023-08-21 14:30 | disposition home or self-care (01) ==
LOC: ER 11:53
DX: M25.561 Pain in right knee (principal); I10 Essential (primary) hypertension; E11.9 Type 2 diabetes mellitus without complications; K21.9 Gastro-esophageal reflux disease without esophagitis; I82.419 Acute embolism and thrombosis of unspecified femoral vein; Z88.0 Allergy status to penicillin
CPT/HCPCS: 73564-TC

== ENCOUNTER 2025-01-07 09:28 | Emergency (ER) | payer MEDICARE, OTHER ==
[~2025-01-07] VITALS: Ht 154.9 cm; Wt 79.4 kg
[~2025-01-07 09:28] MED LIST changes: +NAPR-1009 PO
[2025-01-07 09:39] VITALS: BP 144/81; TEMP 97.9
[2025-01-07] MEDS ORDERED: NAPR-1164 PO (10:59)
[2025-01-07 11:05] VITALS: O2SAT 98
== END 2025-01-07 11:25 | disposition home or self-care (01) ==
LOC: ER 09:31
DX: M25.561 Pain in right knee (principal); E11.9 Type 2 diabetes mellitus without complications; E78.5 Hyperlipidemia, unspecified; I11.0 Hypertensive heart disease with heart failure; I50.9 Heart failure, unspecified; K21.9 Gastro-esophageal reflux disease without esophagitis; Z79.52 Long term (current) use of systemic steroids; Z79.899 Other long term (current) drug therapy; Z86.718 Personal history of other venous thrombosis and embolism; Z88.0 Allergy status to penicillin; Z88.5 Allergy status to narcotic agent; Z87.09 Personal history of other diseases of the respiratory system
CPT/HCPCS: 73564-TC

== ENCOUNTER 2025-05-01 13:09 | Emergency (ER) | payer MEDICARE, OTHER ==
[~2025-05-01] VITALS: Ht 152.4 cm; Wt 79.4 kg
[~2025-05-01 13:09] MED LIST changes: +NAPR-1164 PO
[2025-05-01] MEDS ORDERED: KETOROLAC TROMETHAMINE INJ 30 MG/ML VIAL ONE (14:33)
[2025-05-01] MEDS: KETOROLAC TROMETHAMINE INJ 30 MG/ML VIAL IM ONE (14:37)
[2025-05-01] MEDS ORDERED: IBUPROFEN 600 MG TABLET ONE (15:00)
[2025-05-01] MEDS: IBUPROFEN 600 MG TABLET PO ONE (15:04)
[2025-05-01] MEDS ORDERED: IBUP-1490 PO (16:35)
[2025-05-01 16:43] VITALS: BP 134/93; TEMP 98.1; O2SAT 98
== END 2025-05-01 16:44 | disposition home or self-care (01) ==
LOC: ER 13:14
DX: S13.4XXA Sprain of ligaments of cervical spine, initial encounter (principal); S09.90XA Unspecified injury of head, initial encounter; S39.012A Strain of muscle, fascia and tendon of lower back, initial encounter; I11.0 Hypertensive heart disease with heart failure; E78.5 Hyperlipidemia, unspecified; E11.9 Type 2 diabetes mellitus without complications; Z79.899 Other long term (current) drug therapy; Z79.52 Long term (current) use of systemic steroids; Z86.718 Personal history of other venous thrombosis and embolism; Z88.0 Allergy status to penicillin; Z88.5 Allergy status to narcotic agent; W19.XXXA Unspecified fall, initial encounter; Y93.89 Activity, other specified; Y92.89 Other specified places as the place of occurrence of the external cause; Y99.9 Unspecified external cause status
CPT/HCPCS: 70450-TC; 72125-TC; 72128-TC; J1885